=== PATIENT | female | born 1965 | race Caucasian/White ===

== ENCOUNTER → 2021-10-11 07:19 | Outpatient (CLI) | payer OTHER, MEDICAID, SELFPAY ==
--- NOTE | 2021-10-11 07:25 | DI.MRI.S_ITS ---
PROCEDURE: MR LUMBAR SPINE WO CON INDICATIONS: Sacrococcygeal disorders, not elsewhere classified TECHNIQUE: Noncontrast sagittal T1 spin echo and T2 fast echo, sagittal STIR, and T2 fast spin echo through the lumbar spine. In cases with scoliosis, additional coronal T2 fast spin echo may be performed. COMPARISON: [facility], CR, XR LUMBAR SPINE 2 OR 3 VIEWS, 06/22/2021, 10:51. FINDINGS: Image quality: Partially degraded by metallic artifact. Alignment and Curvature: 5 lumbar type vertebral bodies are present by plain film. There is loss of normal lumbar lordosis. 2 mm of retrolisthesis L3 on L4 is present. Bone Marrow: Marrow is of normal overall signal. No acute vertebral body compression fractures. Metallic artifact posteriorly at L2-L3 is present. Spinal Cord: Conus medullaris terminates at the upper L2 level. Visualized cord demonstrates normal signal and size. Paraspinous Soft Tissues: No paravertebral masses. T12-L1: Moderate disc desiccation. Mild disc height loss. No significant canal, or foraminal stenosis. L1-L2: Normal appearance. L2-L3: Mild disc desiccation. Mild bilateral facet hypertrophy. No significant canal, or foraminal stenosis. L3-L4: Mild disc desiccation and diffuse disc bulge. Mild facet and ligamentum flavum hypertrophy. Mild epidural lipomatosis. Small periarticular cyst arising from the left facet joint extending into the posterior epidural fat measuring roughly 6 mm. Mild canal stenosis. Mild bilateral foraminal stenosis. L4-L5: Mild disc desiccation. Mild disc height loss and diffuse disc bulge. Synovial cyst measuring 4 mm arises from the left facet joint extends into the left lateral recess and left posterolateral patrol space. Mild bilateral facet and ligamentum flavum hypertrophy. There is severe canal stenosis. Moderate left and mild right subarticular foraminal stenosis. Compression of the left L5 nerve root within the lateral recess. L5-S1: Moderate disc desiccation. Mild disc height loss and diffuse disc bulge. Mild facet and ligamentum flavum hypertrophy. Mild canal stenosis. Mild bilateral foraminal stenosis. IMPRESSION: 1. Multilevel degenerative disc and facet disease, as well as ligamentum flavum hypertrophy and epidural lipomatosis. Synovial cysts arising from the facet joints are present at L3-L4 and L4-L5. 2. Multilevel canal stenoses, worst at L4-L5, where there is severe canal stenosis. 3. Left lateral recess stenosis at L4-L5 associated with left L5 nerve root compression. 4. Recommend correlation with clinical symptoms to ascertain relevance of these findings. 5. Postsurgical sequelae. Dictated by: Karie Dunham M.D. on 10/11/2021 at 11:17 Approved by: Karie Dunham M.D. on 10/11/2021 at 11:22
== END ==
PROVIDERS: Family Provider Nurse Practitioner; Referring Provider Physician Assistant; Visit Provider Physician Assistant
DX: M53.3 Sacrococcygeal disorders, not elsewhere classified (principal); M51.36 Other intervertebral disc degeneration, lumbar region; M51.37 Other intervertebral disc degeneration, lumbosacral region; M48.061 Spinal stenosis, lumbar region without neurogenic claudication; M48.07 Spinal stenosis, lumbosacral region; M71.38 Other bursal cyst, other site
CPT/HCPCS: 72148

== ENCOUNTER 2022-04-26 09:32 | Emergency (ER) | payer OTHER, MEDICAID, SELFPAY ==
[2022-04-26 09:49] VITALS: BP 147/85; PULSE 68; RESP 15; TEMP 36.2; O2SAT 100; BMI 19.5
--- NOTE | 2022-04-26 09:51 | DI.RAD.S_ITS ---
PROCEDURE: XR SHOULDER RT MIN 2V INDICATIONS: shoulder pain TECHNIQUE: 3 views of the shoulder were acquired. COMPARISON: None. FINDINGS: Bones: No fractures or dislocations. No suspicious bony lesions. There is mild inferior subluxation at the glenohumeral joint. Visualized ribs appear intact. Soft tissues: No suspicious soft tissue calcifications. IMPRESSION: Mild subluxation at the glenohumeral joint. No other radiographic abnormalities. Dictated by: Brenda Del Rosario M.D. on 04/26/2022 at 10:39 Approved by: Brenda Del Rosario M.D. on 04/26/2022 at 10:40
--- NOTE | 2022-04-26 11:40 | ED_ITS ---
HPI - Extremity Injury (Upper) General Chief Complaint: Extremity Injury, Upper Stated Complaint: RT shoulder is hurting/swell/fingers are numb t-21 Time Seen by Provider: 04/26/22 09:38 Source: patient Mode of arrival: Ambulatory History of Present Illness HPI narrative: 56-year-old female smoker with noncontributory medical history presents with a chief complaint of severe right-sided neck shoulder and arm pain over the past day or 2. She denies any traumatic injury but states that upon waking she felt pain. Her pain seems to be worse when she turns her head or neck additionally when she uses her arm. She at times feels some tingling in her fingers but not currently. She denies any weakness. She denies fever or chills. She has no blurred vision or trouble with speech. She denies chest pain, shortness of breath nor nausea or vomiting. She denies any history of the same. Related Data Previous Rx's Medication Instructions Recorded cyclobenzaprine 10 mg tablet 10 mg PO TID PRN muscle spasm #14 04/26/22 tabs gabapentin 300 mg capsule 300 mg PO BEDTIME #14 caps 04/26/22 hydrocodone 5 mg-acetaminophen 325 1 tab PO Q4-6H PRN pain #10 tabs 04/26/22 mg tablet ketorolac 10 mg tablet 10 mg PO Q6H PRN pain #14 tabs 04/26/22 methylprednisolone 4 mg tablets in See Rx Instructions PO .COMPLEX 04/26/22 a dose pack (Medrol (Lex)) #21 ea Allergies Allergy/AdvReac Type Severity Reaction Status Date / Time No Known Drug Allergies Allergy Verified 04/26/22 09:49 Review of Systems Review of Systems Narrative: GENERAL: Denies chills, fatigue, malaise, fever, sweats. HEENT: Denies sinus pain, ear pain, sore throat, difficulty swallowing, dizziness. RESPIRATORY: Denies dyspnea, cough, wheezing, hemoptysis, sputum. CARDIOVASCULAR: Denies chest pain, palpitations, orthopnea, edema, GASTROINTESTINAL: Denies nausea, vomiting, abdominal pain, diarrhea, constipation, melena. : Denies dysuria, frequency, incontinence, hematuria, urinary retention. MUSCULOSKELETAL: See HPI SKIN: Denies rash, skin lesions, or other NEUROLOGIC: See HPI PSYCHIATRIC: No concerning psychosocial issues. 12 point review of systems is negative except for those stated above Patient History Social History Smoking Status: Current every day smoker Smoking Status: Current every day smoker alcohol intake frequency: holidays/special occasions only Substance Use Type: does not use Exam Narrative Exam Narrative: GENERAL: [56] year old patient appears stated age. Well-developed patient, in mild distress. Rubbing the right side of her neck and upper shoulder HEAD: Atraumatic. Normocephalic. EYES: Pupils equal round and reactive. Extraocular motions intact. No scleral icterus. No injection or drainage. ENT: Nose without bleeding, purulent drainage. Throat without erythema, tonsillar hypertrophy or exudate. Airway patent. NECK: Trachea midline. No midline bony tenderness, there is reproducible pain with palpation of the right side paraspinal cervical musculature. No increased pain with axial loading. No measurable weakness and distribution of her upper arm at shoulder, elbow, wrist or with lumbricals. Cap refill intact. CARDIOVASCULAR: Regular rate and rhythm without murmurs, gallops, or rubs. RESPIRATORY: Clear to auscultation. Breath sounds equal bilaterally. No wheezes, rales, or rhonchi. GASTROINTESTINAL: Abdomen soft, non-tender, nondistended. EXTREMITIES: No edema or joint tenderness. Full range of motion at right shoulder, she is able to use right hand to touch left shoulder and adduct and abduct BACK: Nontender without deformity or crepitance. No flank tenderness. NEURO: AOx3. SKIN: No rash or erythema of visible areas Initial Vital Signs Initial Vital Signs: Vital Signs Temperature 97.1 F L 04/26/22 09:49 Pulse Rate 68 04/26/22 09:49 Respiratory Rate 15 04/26/22 09:49 Blood Pressure 147/85 H 04/26/22 09:49 Pulse Oximetry 100 04/26/22 09:49 Oxygen Delivery Method 04/26/22 09:49 Course Orders Ordered: Discontinued Medications Gabapentin (Gabapentin 300 Mg Capsule) 300 mg PO NOW ONE Stop: 04/26/22 11:41 Last Admin: 04/26/22 11:48 Dose: 300 mg Documented By: FARHANA Ketorolac Tromethamine (Ketorolac 30 Mg/Ml Vial) 30 mg IM NOW ONE Stop: 04/26/22 11:41 Last Admin: 04/26/22 11:53 Dose: 30 mg Documented By: FARHANA Prednisone (Prednisone 20 Mg Tablet) 40 mg PO NOW ONE Stop: 04/26/22 11:41 Last Admin: 04/26/22 11:48 Dose: 40 mg Documented By: FARHANA Vital Signs Vital signs: Vital Signs - 8 hr 04/26/22 09:49 Temperature 97.1 F L Pulse Rate 68 Respiratory Rate 15 Blood Pressure 147/85 H Pulse Oximetry 100 Oxygen Delivery Method Room Air MDM - Extremity Injury (Upper) Imaging Data Extremity x-ray #1: Radiologist's Impression: [address] [address] XRay Report Signed Patient: Sameera Santoyo MR#: [id number] : 1965 Acct:[id number] Age/Sex: 56 / F Date of Service: 04/26/22 Loc: ED Accession Number: [id number] ?? Procedure: XR shoulder RT min 2V Ordering Provider: Gordy Jiménez D.O. PROCEDURE:? XR SHOULDER RT MIN 2V ? INDICATIONS:? shoulder pain ? TECHNIQUE:? 3 views of the shoulder were acquired.? ? COMPARISON:? None. ? FINDINGS:? ? Bones:? No fractures or dislocations.? No suspicious bony lesions.? There is mild inferior subluxation at the glenohumeral joint.? Visualized ribs appear intact.? ? Soft tissues:? No suspicious soft tissue calcifications.? ? IMPRESSION:? Mild subluxation at the glenohumeral joint.? No other radiographic abnormalities. ? ? Dictated by: Brenda Del Rosario M.D. on 04/26/2022 at 10:39 ? ? Approved by: Brenda Del Rosario M.D. on 04/26/2022 at 10:40 ? [facility] Narrative Medical decision making narrative: 56-year-old female smoker with noncontributory medical history presents with right-sided neck, shoulder and arm pain. Multiple etiologies for patient's symptoms considered including: Cervical radiculopathy, muscle spasm, cellulitis, DVT, cardiac disease Patient's pain is reproducible to range of motion and palpation. She has radicular symptoms but no evidence of weakness or sensory deficit. Patient's symptoms improved over duration of stay with above-stated therapies. Findings and discharge diagnosis discussed with patient/family followed by verbalization of understanding Return precautions discussed with patient/family whom verbalize understanding. Discharge Plan Departure Patient Disposition: Home Clinical Impression: Cervical radiculopathy Instructions: DI for Cervical Radiculopathy Activity Restrictions/Additional Instructions: *You have been diagnosed with [right-sided cervical radiculopathy] *What to do: *Please continue to take your regular medications as directed. [x ] New medication prescriptions sent to your pharmacy: [ [facility]] [ ] New medication written as a paper prescription [ ] No new medications given *Please follow up with your primary care provider in 2-3 days, call for an appointment. Let them know you were seen in the Emergency Department and that we ask that you be seen in follow up. We will electronically transmit a record of today's note if your PCP is in our system *Return to Emergency Department if you should have any new, worsening or concerning symptoms, such as [fever greater than 101 F, shaking chills, worsening pain, persistent vomiting or other bothersome symptoms] Prescriptions: New cyclobenzaprine 10 mg tablet 10 mg PO TID PRN (Reason: muscle spasm) Qty: 14 0RF hydrocodone-acetaminophen 5-325 mg tablet 1 tab PO Q4-6H PRN (Reason: pain) Qty: 10 0RF ketorolac 10 mg tablet 10 mg PO Q6H PRN (Reason: pain) Qty: 14 0RF gabapentin 300 mg capsule 300 mg PO BEDTIME Qty: 14 0RF methylprednisolone [Medrol (Lex)] 4 mg tablets,dose pack See Rx Instructions .ROUTE .COMPLEX Qty: 21 0RF Rx Instructions: orally per package directions Referrals: Dontrell Sterling PA-C [Primary Care Provider] - Visit Report Forms: Patient Portal/API
[2022-04-26] MEDS: predniSONE 20 MG TABLET 40 MG PO (11:48)
[2022-04-26] MEDS: GABAPENTIN 300 MG CAPSULE PO (11:48)
[2022-04-26 11:51] VITALS: BP 150/92; PULSE 65; O2SAT 99
[2022-04-26] MEDS: KETOROLAC 30 MG/ML VIAL IM (11:53)
== END 2022-04-26 12:05 | disposition home or self-care (01) ==
PROVIDERS: Emergency Provider Emergency Medicine; Family Provider Nurse Practitioner; PCP Physician Assistant
DX: M54.12 Radiculopathy, cervical region (principal)
CPT/HCPCS: 73030; 96372; 99283; 99284; J1885

== ENCOUNTER → 2022-05-09 16:12 | Outpatient (CLI) | payer OTHER, MEDICAID, SELFPAY | PROVIDERS: Family Provider Nurse Practitioner; PCP Physician Assistant; Referring Provider Internal Medicine; Visit Provider Internal Medicine | DX: Z23 Encounter for immunization (principal) | CPT/HCPCS: 90471; 90686 ==

== ENCOUNTER → 2023-04-23 14:00 | Outpatient (CLI) | payer OTHER, SELFPAY | PROVIDERS: Family Provider Nurse Practitioner; PCP Physician Assistant; Referring Provider Family Medicine; Visit Provider Family Medicine | DX: Z23 Encounter for immunization (principal) | CPT/HCPCS: 90471; 90686 ==

== ENCOUNTER → 2024-03-24 14:14 | Outpatient (CLI) | payer OTHER, SELFPAY | PROVIDERS: Family Provider Nurse Practitioner; PCP Physician Assistant; Referring Provider Internal Medicine; Visit Provider Internal Medicine | DX: Z23 Encounter for immunization (principal) | CPT/HCPCS: 90471; 90656 ==

== ENCOUNTER 2024-05-28 11:07 | Emergency (ER) | payer OTHER, SELFPAY ==
[2024-05-28 11:10] VITALS: BP 122/76; PULSE 61; RESP 14; TEMP 36.6; O2SAT 99; BMI 19.5
--- NOTE | 2024-05-28 11:32 | EKG_ITS ---
[address] [id number] [address] [address] Test Date: 2024-05-28 Pat Name: Sameera Santoyo Department: Room: Gender: Female Box Stamper: LESLEY : 1965 Requested By: Order Number: [id number] Reading MD: Nick Palacios MD Measurements Intervals [place] Rate: 62 P: [place]: QRS: 77 QRSD: 92 T: 72 QT: 410 QTc: 416 Interpretive Statements Junctional rhythm Electronically Signed On 05-28-2024 11:59:25 PST by Nick Palacios MD
--- NOTE | 2024-05-28 12:03 | DI.RAD.S_ITS ---
PROCEDURE: XR CHEST 1V INDICATIONS: chest pain TECHNIQUE: One view of the chest was acquired. COMPARISON: None. FINDINGS: Surgical changes and devices: Johnston type rob is seen projecting over the lower thoracic spine. Lungs and pleura: Mild bilateral reticulonodular opacities. No focal consolidation. No pleural effusions or pneumothorax. Mediastinum: Mediastinal contours appear normal. Heart size is normal. Bones and chest wall: No suspicious bony lesions. Overlying soft tissues appear unremarkable. IMPRESSION: Mild bilateral reticular opacities may be secondary to a viral or atypical pneumonia or mild edema. Approved by: Vipul Mendieta M.D. on 05/28/2024 at 12:37
--- NOTE | 2024-05-28 12:03 | DI.RAD.S_ITS ---
PROCEDURE: XR SHOULDER RT MIN 2V INDICATIONS: shoulder pain TECHNIQUE: 3 views of the shoulder were acquired. COMPARISON: [facility], CR, XR SHOULDER RT MIN 2V, 04/26/2022, 10:13. FINDINGS: Bones: No acute fractures or dislocations. No suspicious bony lesions. Visualized ribs appear intact. Mild acromioclavicular joint osteoarthrosis. Generalized osteopenia. Soft tissues: No suspicious soft tissue calcifications. IMPRESSION: No acute osseous abnormality. If there is continued clinical concern or persistent symptoms, repeat radiographs or cross-sectional imaging (e.g. CT, MRI) may be helpful for further evaluation. Approved by: Vipul Mendieta M.D. on 05/28/2024 at 12:35
[2024-05-28 12:10] LABS: Add Manual Diff / Slide Review NO; Basophils Absolute Auto 100 /uL (0-100); Basophils Percent Auto 1.5 % (0-2); Eosinophils Absolute Auto 100 /uL (0-450); Eosinophils Percent Auto 1.7 % (2-4); Hemoglobin 12.3 g/dL (12.0-16.0); Lymphocytes Absolute Auto 1400 /uL (1100-4500); Lymphocytes Percent Auto 20.2 % (25-40); Mean Corpuscular HGB Conc 33.2 % (30-36); Mean Corpuscular Hemoglobin 30.5 PG (26-34); Monocytes Absolute Auto 400 /uL (0-900); Monocytes Percent Auto 5.9 % (3-14); Neutrophils Absolute Auto 4800 /uL (1500-7000); Neutrophils Percent Auto 70.7 % (50-75); Platelet Count 276 X10^3/uL (150-400); Red Blood Cell Count 4.02 X10^6/uL (4.0-5.2); Red Cell Distribution Width 12.4 % (11.6-14.8); White Blood Cell Count 6.8 X10^3/uL (4.5-11.0)
[2024-05-28 12:15] LABS: Prothrombin Time 11.8 SECONDS (9.4-12.5)
[2024-05-28 12:18] LABS: PTT Partial Thromboplastin Tim 35 SECONDS (25.1-36.5)
[2024-05-28 12:20] LABS: Alanine Aminotransferase 12 IU/L (<35); Albumin 4.6 g/dL (3.5-5.0); Albumin Globulin Ratio 1.5 (1.0-2.8); Alkaline Phosphatase 72 U/L (38-126); Aspartate Aminotransferase 29 IU/L (14-36); BUN Creatinine Ratio 25.4 (6-22); Bilirubin Total 0.5 mg/dL (0.2-1.3); Blood Urea Nitrogen 16 mg/dL (7-17); Calcium 9.4 mg/dL (8.4-10.2); Carbon Dioxide 28 mmol/L (22-32); Chloride 103 mmol/L (98-107); Creatine Kinase 52 U/L (30-135); Estimated Glomerular Filt Rate > 60 mL/min (>60); Globulin 3.1 g/dL (1.7-4.1); Glucose 88 mg/dL (70-100); HEMOLYSIS < 15 (0-50); Lipase 229 U/L (23-300); Magnesium 1.8 mg/dL (1.6-2.3); Potassium 3.8 mmol/L (3.4-5.1); Sodium 136 mmol/L (137-145); Total Protein 7.7 g/dL (6.3-8.2)
[2024-05-28 12:32] LABS: NT-proBNP (BNP-Adult 18+) 110 pg/mL (<125); Troponin I < 0.012 ng/mL (0.01-0.034)
[2024-05-28] MEDS: ASPIRIN 81 MG CHEW TAB 324 MG PO (12:45)
--- NOTE | 2024-05-28 12:45 | ED_ITS ---
HPI - Extremity Injury (Upper) <Senait Kaminski PA-C - Last Filed: 05/28/24 15:47> General Chief Complaint: Extremity Injury, Upper Stated Complaint: Right shoulder/ arm pain Time Seen by Provider: 05/28/24 11:48 Source: patient Mode of arrival: Ambulatory History of Present Illness HPI narrative: Ms. Santoyo is a pleasant 58-year-old female with a past medical history of cervical radiculopathy, prior cervical fractures, prior back surgeries, ETOH use disorder in recovery who presents to the emergency department for severe right shoulder pain x1.5 weeks. Patient states she was bowling when the pain started. She has been trying muscle relaxers without relief. 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 Describes pain as all over the right shoulder, worse with movement however pain does also radiate down the right arm and occasional tingling in left hand. Pain with abduction of right shoulder. No neck pain, back pain, chest pain, shortness of breath, cough, fevers, chills. She does smoke cigarettes. Related Data Previous Rx's Medication Instructions Recorded cyclobenzaprine 10 mg tablet 10 mg PO TID PRN muscle spasm #14 04/26/22 tabs gabapentin 300 mg capsule 300 mg PO BEDTIME #14 caps 04/26/22 hydrocodone 5 mg-acetaminophen 325 1 tab PO Q4-6H PRN pain #10 tabs 04/26/22 mg tablet ketorolac 10 mg tablet 10 mg PO Q6H PRN pain #14 tabs 04/26/22 methylprednisolone 4 mg tablets in See Rx Instructions PO .COMPLEX 04/26/22 a dose pack (Medrol (Lex)) #21 ea azithromycin 250 mg tablet See Rx Instructions PO .COMPLEX #6 05/28/24 (Zithromax Z-Lex) tabs hydrocodone 5 mg-acetaminophen 325 1 tab PO Q6H PRN pain #10 tabs 05/28/24 mg tablet lidocaine 5 % topical patch 1 patch topical DAILY #15 ea 05/28/24 (Lidoderm) naproxen 375 mg tablet 375 mg PO BID PRN pain #14 tabs 05/28/24 prednisone 20 mg tablet 40 mg (2 x 20 mg) PO DAILY 5 days 05/28/24 #10 tabs Allergies Allergy/AdvReac Type Severity Reaction Status Date / Time No Known Drug Allergies Allergy Verified 04/26/22 09:49 Review of Systems <Senait Kaminski PA-C - Last Filed: 05/28/24 15:47> Review of Systems ROS Unobtainable: All systems reviewed & are unremarkable except as noted in HPI and below Patient History <Senait Kaminski PA-C - Last Filed: 05/28/24 15:47> Social History Smoking Status: Current every day smoker Smoking Status: Current every day smoker alcohol intake frequency: holidays/special occasions only Exam <Senait Kaminski PA-C - Last Filed: 05/28/24 15:47> Narrative Exam Narrative: GENERAL: 58 year old patient appears stated age. In mild distress, grabbing right shoulder. NECK: Trachea midline. Cervical ROM intact. No midline tenderness. CARDIOVASCULAR: Regular rate and rhythm. RESPIRATORY: ?Nonlabored respirations. ?Speaking in clear, full sentences. ?Clear to auscultation. Breath sounds equal bilaterally. No wheezes, rales, or rhonchi. ? EXTREMITIES: Pain with both active and passive abduction of right shoulder. Tenderness to palpation of right shoulder, diffusely. Subjective pain in right chest wall below axilla and right biceps, nonreproducible. 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 BACK: Nontender without deformity or crepitance. No flank tenderness. NEURO: AOx3. ?Clear speech. ?Moves all 4 extremities appropriately. Strength and sensation intact to light touch in distribution of median, radial, ulnar nerves bilaterally. SKIN: No rash or erythema of visible areas Initial Vital Signs Initial Vital Signs: Vital Signs Temperature 97.8 F 05/28/24 11:10 Pulse Rate 61 05/28/24 11:10 Respiratory Rate 14 05/28/24 11:10 Blood Pressure 122/76 05/28/24 11:10 Pulse Oximetry 99 05/28/24 11:10 Oxygen Delivery Method Room Air 05/28/24 11:10 <Layla England DO - Last Filed: 05/31/24 07:29> Initial Vital Signs Initial Vital Signs: Vital Signs Temperature 97.8 F 05/28/24 11:10 Pulse Rate 61 05/28/24 11:10 Respiratory Rate 14 05/28/24 11:10 Blood Pressure 122/76 05/28/24 11:10 Pulse Oximetry 99 05/28/24 11:10 Oxygen Delivery Method Room Air 05/28/24 11:10 Course <Senait Kaminski PA-C - Last Filed: 05/28/24 15:47> Orders Ordered: Discontinued Medications Aspirin (Aspirin 81 Mg Chew Tab) 324 mg PO NOW ONE Stop: 05/28/24 12:03 Last Admin: 05/28/24 12:45 Dose: 324 mg Documented By: FARHANA Ketorolac Tromethamine (Ketorolac 30 Mg/Ml Vial) 15 mg IV NOW ONE Stop: 05/28/24 12:57 Last Admin: 05/28/24 13:02 Dose: 15 mg Documented By: FARHANA Morphine Sulfate (Morphine 4 Mg/Ml Inj) 4 mg IV NOW ONE Stop: 05/28/24 12:57 Last Admin: 05/28/24 13:03 Dose: 4 mg Documented By: FARHANA Ondansetron HCl (Ondansetron 4 Mg/2 Ml Inj) 4 mg IV NOW ONE Stop: 05/28/24 12:57 Last Admin: 05/28/24 13:03 Dose: 4 mg Documented By: FARHANA Prednisone (Prednisone 20 Mg Tablet) 40 mg PO NOW ONE Stop: 05/28/24 15:30 Last Admin: 05/28/24 15:40 Dose: 40 mg Documented By: CHENCHO Vital Signs Vital signs: Vital Signs - 8 hr 05/28/24 11:10 Temperature 97.8 F Pulse Rate 61 Respiratory Rate 14 Blood Pressure 122/76 Pulse Oximetry 99 Oxygen Delivery Method Room Air <Layla England DO - Last Filed: 05/31/24 07:29> Orders Ordered: Discontinued Medications Aspirin (Aspirin 81 Mg Chew Tab) 324 mg PO NOW ONE Stop: 05/28/24 12:03 Last Admin: 05/28/24 12:45 Dose: 324 mg Documented By: FARHANA Ketorolac Tromethamine (Ketorolac 30 Mg/Ml Vial) 15 mg IV NOW ONE Stop: 05/28/24 12:57 Last Admin: 05/28/24 13:02 Dose: 15 mg Documented By: FARHANA Morphine Sulfate (Morphine 4 Mg/Ml Inj) 4 mg IV NOW ONE Stop: 05/28/24 12:57 Last Admin: 05/28/24 13:03 Dose: 4 mg Documented By: FARHANA Ondansetron HCl (Ondansetron 4 Mg/2 Ml Inj) 4 mg IV NOW ONE Stop: 05/28/24 12:57 Last Admin: 05/28/24 13:03 Dose: 4 mg Documented By: FARHANA Prednisone (Prednisone 20 Mg Tablet) 40 mg PO NOW ONE Stop: 05/28/24 15:30 Last Admin: 05/28/24 15:40 Dose: 40 mg Documented By: CHENCHO Vital Signs Vital signs: Vital Signs - 8 hr 05/28/24 11:10 Temperature 97.8 F Pulse Rate 61 Respiratory Rate 14 Blood Pressure 122/76 Pulse Oximetry 99 Oxygen Delivery Method Room Air MDM - Extremity Injury (Upper) <Senait Kaminski PA-C - Last Filed: 05/28/24 15:47> Medical Records Attestation: I reviewed the patient's medical records. Medical records narrative: 04/26/22 ER visit for cervical radiculopathy. Lab Data 05/28/24 11:58 05/28/24 11:58 Labs: Lab Results 05/28/24 05/28/24 Range/Units 11:58 14:12 WBC 6.8 (4.5-11.0) X10^3/uL RBC 4.02 (4.0-5.2) X10^6/uL Hgb 12.3 (12.0-16.0) g/dL Hct 37.0 (36-46) % MCV 92.0 (80-100) fL MCH 30.5 (26-34) PG MCHC 33.2 (30-36) % RDW 12.4 (11.6-14.8) % Plt Count 276 (150-400) X10^3/uL Neut % (Auto) 70.7 (50-75) % Lymph % (Auto) 20.2 L (25-40) % Stone % (Auto) 5.9 (3-14) % Eos % (Auto) 1.7 L (2-4) % Baso % (Auto) 1.5 (0-2) % Neut # (Auto) 4800 (2817-8047) /uL Lymph # (Auto) 1400 (3905-2432) /uL Stone # (Auto) 400 (0-900) /uL Eos # (Auto) 100 (0-450) /uL Baso # (Auto) 100 (0-100) /uL PT 11.8 (9.4-12.5) SECONDS INR 1.0 (0.9-1.3) APTT 35 (25.1-36.5) SECONDS Sodium 136 L (137-145) mmol/L Potassium 3.8 (3.4-5.1) mmol/L Chloride 103 (98-107) mmol/L Carbon Dioxide 28 (22-32) mmol/L BUN 16 (7-17) mg/dL Creatinine 0.63 (0.52-1.04) mg/dL Estimated GFR > 60 (>60) mL/min BUN/Creatinine Ratio 25.4 H (6-22) Glucose 88 (70-100) mg/dL Calcium 9.4 (8.4-10.2) mg/dL Magnesium 1.8 (1.6-2.3) mg/dL Total Bilirubin 0.5 (0.2-1.3) mg/dL AST 29 (14-36) IU/L ALT 12 (<35) IU/L Alkaline Phosphatase 72 (38-126) U/L Total Creatine Kinase 52 (30-135) U/L Troponin I < 0.012 < 0.012 (0.01-0.034) ng/mL NT-Pro-B Natriuret Pep 110 (<125) pg/mL Total Protein 7.7 (6.3-8.2) g/dL Albumin 4.6 (3.5-5.0) g/dL Globulin 3.1 (1.7-4.1) g/dL Albumin/Globulin Ratio 1.5 (1.0-2.8) Lipase 229 (23-300) U/L Imaging Data Chest x-ray: Radiologist's Impression: PROCEDURE: XR CHEST 1V INDICATIONS: chest pain TECHNIQUE: One view of the chest was acquired. COMPARISON: None. FINDINGS: Surgical changes and devices: Johnston type rob is seen projecting over the lower thoracic spine. Lungs and pleura: Mild bilateral reticulonodular opacities. No focal consolidation. No pleural effusions or pneumothorax. Mediastinum: Mediastinal contours appear normal. Heart size is normal. Bones and chest wall: No suspicious bony lesions. Overlying soft tissues appear unremarkable. IMPRESSION: Mild bilateral reticular opacities may be secondary to a viral or atypical pneumonia or mild edema. Right Shoulder X-Ray: Radiologist's Impression: PROCEDURE: XR SHOULDER RT MIN 2V INDICATIONS: shoulder pain TECHNIQUE: 3 views of the shoulder were acquired. COMPARISON: [facility], CR, XR SHOULDER RT MIN 2V, 04/26/2022, 10:13. FINDINGS: Bones: No acute fractures or dislocations. No suspicious bony lesions. Visualized ribs appear intact. Mild acromioclavicular joint osteoarthrosis. Generalized osteopenia. Soft tissues: No suspicious soft tissue calcifications. IMPRESSION: No acute osseous abnormality. If there is continued clinical concern or persistent symptoms, repeat radiographs or cross-sectional imaging (e.g. CT, MRI) may be helpful for further evaluation. Cervical CT: Radiologist's Impression: PROCEDURE: CT CERVICAL SPINE WO CON INDICATIONS: R shoulder and arm pain; hx cervical fx; concern radiculopat TECHNIQUE: Noncontrast 3 mm thick sections acquired from the skull base to the T4 level. Sagittal and coronal reformats were then constructed. For radiation dose reduction, the following was used: automated exposure control, adjustment of mA and/or kV according to patient size. COMPARISON: None. FINDINGS: Image quality: Excellent. Bones: No fractures or dislocations. Diffuse osteopenia. Posterior disc osteophyte complex results in a degree of canal stenosis C3-C4, C4-C5, and C5-C6. There is multilevel bony foraminal narrowing, severe at C5-C6. Visualized superior ribs are intact. Soft tissues: Prevertebral soft tissues are normal in thickness. No paravertebral hematomas. No apical pneumothoraces. IMPRESSION: 1. No displaced cervical fracture or dislocation. 2. Diffuse osteopenia. 3. Cervical spondylosis with multilevel canal stenosis foraminal stenosis. [facility] Narrative Medical decision making narrative: 58-year-old female with a past medical history of cervical radiculopathy, prior cervical fractures, prior back surgeries, ETOH use disorder in recovery who presents to the emergency department for severe right shoulder pain x1.5 weeks. Differential diagnosis includes but is not limited to cervical radiculopathy, right shoulder arthritis, right shoulder rotator cuff injury, right shoulder sprain, strain, ACS/PA, pneumonia, etc. On exam patient is visibly uncomfortable and in severe pain due to her right shoulder. Vital signs all within normal limits. Right arm neurovascularly intact. Due to possibility of atypical PA, a cardiac workup was initiated with an EKG reviewed by attending physician showing junctional rhythm. Patient having no substernal chest pain shortness of breath or dizziness. She is having what appears to be musculoskeletal type right shoulder pain possible cervical radiculopathy as pain does radiate into the biceps with no known injury however she was bowling when it started. Pain with abduction of shoulder, possibly related to rotator cuff injury. Right-sided chest wall pain below the arm. In addition to cardiac workup, x-ray shoulder and CT cervical spine was ordered. We will treat severe pain with morphine, Toradol, Zofran. Labs reveal normal WBC count 6.8. Hemoglobin 12.3, hematocrit 37.3. Sodium 136 potassium 3.8. BUN 16 creatinine 0.63. Troponin negative x 2. Lipase and BNP negative. Chest x-ray reveals mild bilateral reticular opacities may be secondary to a viral or atypical pneumonia or mild edema. Patient has no fever, leukocytosis or productive cough however history of smoking and not have an abundance of caution we we will treat as atypical pneumonia, azithromycin prescribed, as this may be contributing to patient's right-sided chest wall pain. Right shoulder x-ray shows mild acromioclavicular joint osteoarthritis, generalized osteopenia, no acute findings. Cervical spine CT also reveals diffuse osteopenia and cervical spondylosis with multilevel canal stenosis foraminal stenosis. Suspect patient's pain is related to combination of cervical radiculopathy, shoulder arthritis, shoulder strain, possibly atypical pneumonia. Her pain improved significantly in the ED and her range of motion is now back to normal, able to lift her arm above her head. We will treat with short course of steroids in addition to hydrocodone if needed for severe pain. She was also prescribed naproxen and recommended Tylenol. Lidoderm prescribed. Z-Lex prescribed. Advised patient to follow up with primary care doctor and also provided her with information for Orthopedic spine surgery for further evaluation. We discussed strict ER return precautions. We discussed the risks of opioids and I recommended she only needed if other medications are not working. She understands to avoid driving or working on opioids. Work note provided. Patient verbalized understanding of all information, is agreeable to plan, is stable for discharge home. <Layla England, DO - Last Filed: 05/31/24 07:29> Lab Data Labs: Lab Results 05/28/24 05/28/24 Range/Units 11:58 14:12 WBC 6.8 (4.5-11.0) X10^3/uL RBC 4.02 (4.0-5.2) X10^6/uL Hgb 12.3 (12.0-16.0) g/dL Hct 37.0 (36-46) % MCV 92.0 (80-100) fL MCH 30.5 (26-34) PG MCHC 33.2 (30-36) % RDW 12.4 (11.6-14.8) % Plt Count 276 (150-400) X10^3/uL Neut % (Auto) 70.7 (50-75) % Lymph % (Auto) 20.2 L (25-40) % Stone % (Auto) 5.9 (3-14) % Eos % (Auto) 1.7 L (2-4) % Baso % (Auto) 1.5 (0-2) % Neut # (Auto) 4800 (8618-8970) /uL Lymph # (Auto) 1400 (2919-0095) /uL Stone # (Auto) 400 (0-900) /uL Eos # (Auto) 100 (0-450) /uL Baso # (Auto) 100 (0-100) /uL PT 11.8 (9.4-12.5) SECONDS INR 1.0 (0.9-1.3) APTT 35 (25.1-36.5) SECONDS Sodium 136 L (137-145) mmol/L Potassium 3.8 (3.4-5.1) mmol/L Chloride 103 (98-107) mmol/L Carbon Dioxide 28 (22-32) mmol/L BUN 16 (7-17) mg/dL Creatinine 0.63 (0.52-1.04) mg/dL Estimated GFR > 60 (>60) mL/min BUN/Creatinine Ratio 25.4 H (6-22) Glucose 88 (70-100) mg/dL Calcium 9.4 (8.4-10.2) mg/dL Magnesium 1.8 (1.6-2.3) mg/dL Total Bilirubin 0.5 (0.2-1.3) mg/dL AST 29 (14-36) IU/L ALT 12 (<35) IU/L Alkaline Phosphatase 72 (38-126) U/L Total Creatine Kinase 52 (30-135) U/L Troponin I < 0.012 < 0.012 (0.01-0.034) ng/mL NT-Pro-B Natriuret Pep 110 (<125) pg/mL Total Protein 7.7 (6.3-8.2) g/dL Albumin 4.6 (3.5-5.0) g/dL Globulin 3.1 (1.7-4.1) g/dL Albumin/Globulin Ratio 1.5 (1.0-2.8) Lipase 229 (23-300) U/L Discharge Plan Departure Patient Disposition: Home Clinical Impression: Cervical radiculopathy, Atypical pneumonia Muscle strain of right shoulder Qualifiers: Encounter type: initial encounter Qualified Code(s): S46.911A - Strain of unspecified muscle, fascia and tendon at shoulder and upper arm level, right arm, initial encounter Osteopenia Qualifiers: Osteopenia location: multiple sites Qualified Code(s): M85.89 - Other specified disorders of bone density and structure, multiple sites Instructions: DI for Cervical Radiculopathy Activity Restrictions/Additional Instructions: Today you were evaluated for severe right shoulder pain. Imaging revealed stenosis in your cervical spine in addition to some arthritis in the right shoulder. I would like you to follow up with the primary care doctor and also a spine doctor for further evaluation. Your chest x-ray also shows possible atypical pneumonia which could be contributing to your right-sided chest wall pain. Please complete the full course of antibiotics prescribed. You may call to schedule an appointment with orthopedic spine surgeon Dr. Sajan Rivera in [place]. Phone number [phone]. Today you have been prescribed an opioid pain medication if needed for severe pain. You have been prescribed naproxen which is an anti-inflammatory pain medication. You may also take Acetaminophen 650 mg every 4-6 hours for pain. Do not exceed 3000 mg of Tylenol a day as this can cause liver damage. Do not drink alcohol with either of these medications. You have been prescribed a short course of narcotic medications. These are potentially dangerous and addictive medications that should be used carefully. While on these medications you cannot drive or operate heavy machinery. Additionally, you cannot sign legal documents or perform any duties such as this. 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 Please understand that we cannot provide further refills of narcotics or controlled substances through the ED and your pain management will need to be through your Primary Care Provider Please follow up with your primary care doctor within the next 2-3 days for ER follow-up. (If you do not have a PCP you can call [phone]. ?to schedule an appointment with an [facility] Primary Care Provider) IF YOU DEVELOP ANY NEW OR WORSENING SYMPTOMS, RETURN TO THE ER! Please read the attached instructions, they highlight more specific treatments and interventions for you at home. Thank you for letting me participate in your care, Senait Kaminski PA-C Prescriptions: New prednisone 20 mg tablet 40 mg PO DAILY 5 Days Qty: 10 0RF naproxen 375 mg tablet 375 mg PO BID PRN (Reason: pain) Qty: 14 0RF lidocaine [Lidoderm] 5 % adhesive patch,medicated 1 patch topical DAILY Qty: 15 0RF Rx Instructions: leave on most painful area for up to 12 hrs hydrocodone-acetaminophen 5-325 mg tablet 1 tab PO Q6H PRN (Reason: pain) Qty: 10 0RF azithromycin [Zithromax Z-Lex] 250 mg tablet See Rx Instructions .ROUTE .COMPLEX Qty: 6 0RF Rx Instructions: For 250 mg dose pack: take 500 mg today (day 1), then 250 mg for 4 days (days 2-5) No Action cyclobenzaprine 10 mg tablet 10 mg PO TID PRN (Reason: muscle spasm) Qty: 14 0RF hydrocodone-acetaminophen 5-325 mg tablet 1 tab PO Q4-6H PRN (Reason: pain) Qty: 10 0RF ketorolac 10 mg tablet 10 mg PO Q6H PRN (Reason: pain) Qty: 14 0RF gabapentin 300 mg capsule 300 mg PO BEDTIME Qty: 14 0RF methylprednisolone [Medrol (Lex)] 4 mg tablets,dose pack See Rx Instructions .ROUTE .COMPLEX Qty: 21 0RF Rx Instructions: orally per package directions Referrals: Dontrell Sterling PA-C [Primary Care Provider] - Stand Alone Forms: Patient Portal/API/Survey, Work Release Note ED Sign-out <Layla England DO - Last Filed: 05/31/24 07:29> Cosign ED Attending Cosignature Attestation: I was available for consultation.
--- NOTE | 2024-05-28 12:56 | DI.CT.S_ITS ---
PROCEDURE: CT CERVICAL SPINE WO CON INDICATIONS: R shoulder and arm pain; hx cervical fx; concern radiculopat TECHNIQUE: Noncontrast 3 mm thick sections acquired from the skull base to the T4 level. Sagittal and coronal reformats were then constructed. For radiation dose reduction, the following was used: automated exposure control, adjustment of mA and/or kV according to patient size. COMPARISON: None. FINDINGS: Image quality: Excellent. Bones: No fractures or dislocations. Diffuse osteopenia. Posterior disc osteophyte complex results in a degree of canal stenosis C3-C4, C4-C5, and C5-C6. There is multilevel bony foraminal narrowing, severe at C5-C6. Visualized superior ribs are intact. Soft tissues: Prevertebral soft tissues are normal in thickness. No paravertebral hematomas. No apical pneumothoraces. IMPRESSION: 1. No displaced cervical fracture or dislocation. 2. Diffuse osteopenia. 3. Cervical spondylosis with multilevel canal stenosis foraminal stenosis. Dictated by: Jey Odom M.D. on 05/28/2024 at 14:14 Approved by: Jey Odom M.D. on 05/28/2024 at 14:17
[2024-05-28] MEDS: KETOROLAC 30 MG/ML VIAL 15 MG IV (13:02)
[2024-05-28] MEDS: ONDANSETRON 4 MG/2 ML INJ IV (13:03)
[2024-05-28] MEDS: MORPHINE 4 MG/ML INJ IV (13:03)
[2024-05-28 14:40] LABS: Troponin I < 0.012 ng/mL (0.01-0.034)
[2024-05-28] MEDS: predniSONE 20 MG TABLET 40 MG PO (15:40)
[2024-05-28 16:03] VITALS: BP 139/66; PULSE 53; RESP 16; O2SAT 100
== END 2024-05-28 15:51 | disposition home or self-care (01) ==
PROVIDERS: Emergency Provider Physician Assistant; Family Provider Nurse Practitioner; PCP Physician Assistant
DX: M54.12 Radiculopathy, cervical region (principal); J18.9 Pneumonia, unspecified organism; S46.911A Strain of unspecified muscle, fascia and tendon at shoulder and upper arm level, right arm, initial encounter; M85.89 Other specified disorders of bone density and structure, multiple sites; R07.9 Chest pain, unspecified; Z72.0 Tobacco use
CPT/HCPCS: 36415; 71045; 72125; 73030; 80053; 82550; 83690; 83735; 83880; 84484; 85025; 85610; 85730; 93005; 93010; 96374; 96375; 99284; J1885; J2270; J2405